=== PATIENT | male | born 1965 | race Two or more races ===

== ENCOUNTER 2018-08-03 05:00 | Day surgery (SDC) | payer OTHER ==
[~2018-08-03 05:00] MED LIST: OMEGA 3-6-9 11200 M1 PO; ZOCOR40 MG PO
[2018-08-03] MEDS ORDERED: PERCOCET 5-3251 EACH PO (08:25)
[2018-08-03] MEDS ORDERED: COLACE100 MG PO (08:25)
== END 2018-08-03 12:20 | disposition home or self-care (01) ==
LOC: CIR.AMB 05:00
DX: K60.3 Anal fistula (principal)